=== PATIENT | male | born 1990 | race Caucasian/White ===

== ENCOUNTER 2022-12-23 13:40 | Emergency (ER) | payer OTHER ==
[~2022-12-23] VITALS: Ht 180.3 cm; Wt 73.0 kg
[2022-12-23] MEDS ORDERED: ACETAMINOPHEN ES 500 MG TABLET PO ONE (14:30)
[2022-12-23] MEDS ORDERED: ONDANSETRON HCL/PF - ER 4 MG/2 ML VIAL IV ONE ×2 (14:30→16:30)
[2022-12-23] MEDS ORDERED: PROPOFOL 200 MG/20 ML VIAL IV ONE ×2 (14:30→16:00)
[2022-12-23 14:43] LABS: BASOPHILS % (AUTO) 0.1 % (0.0-2.0); HEMATOCRIT 46 % (39-51); HEMOGLOBIN 15.5 g/dL (13.5-17.5); LYMPHOCYTES # (AUTO) 0.8 K/uL (0.8-4.8); MEAN CORPUSCULAR HEMOGLOBIN 30 PG (26.0-33.0); MEAN CORPUSCULAR HGB CONC 34 g/dl (31.0-36.0); MEAN CORPUSCULAR VOLUME 88 fL (80-96); MONOCYTES # (AUTO) 0.5 K/uL (0.1-1.30); MONOCYTES % (AUTO) 4.5 % (2.0-12.0); NEUTROPHILS # (AUTO) 9.6 K/uL (1.8-8.9); NEUTROPHILS % (AUTO) 88.4 % (43.0-81.0); PLATELET COUNT (AUTO) 309 K/uL (150-450); RED BLOOD CELL COUNT(AUTO) 5.17 MIL/uL (4.5-6.0); RED CELL DISTRIBUTION WIDTH 12.9 % (11.5-15.0); WHITE BLOOD COUNT (AUTO) 10.8 K/uL (4.3-11.0)
[2022-12-23] MEDS ORDERED: ONDANSETRON HCL/PF 4 MG/2 ML VIAL ONE ×2 (14:51→15:15)
[2022-12-23] MEDS ORDERED: ACETAMINOPHEN ES 500 MG TABLET ONE (14:52)
[2022-12-23] MEDS ORDERED: PROPOFOL 20 ML IV ONE ×2 (15:05→15:27)
[2022-12-23 15:06] LABS: CALCIUM, SERUM 10.3 mg/dL (8.5-10.1); POTASSIUM 3.5 mmol/L (3.5-5.1)
[2022-12-23] MEDS ORDERED: ONDA4TAB11 PO (15:50)
[2022-12-23] MEDS ORDERED: OXYB10TA30 PO (15:52)
[2022-12-23 16:53] VITALS: BP 103/65; TEMP 97.7; O2SAT 100
== END 2022-12-23 16:53 | disposition home or self-care (01) ==
LOC: ER 13:53
DX: R33.9 Retention of urine, unspecified (principal); Z88.8 Allergy status to other drugs, medicaments and biological substances; Z60.2 Problems related to living alone
CPT/HCPCS: 99285; 96374; 51702; 99152; 85025; 80048; 36415; J2704 ×2; J2405 ×4; J7030; G0500